=== PATIENT | female | born 1960 | race Caucasian/White ===

== ENCOUNTER → 2016-12-27 | Outpatient (CLI) | payer BC ==
[~2016-12-27] MED LIST: ALBU1AER9 INH; ASPI81TA21 PO; ATOR80TA PO; CLX20 PO; LEVO1TAB33 PO; METF500T PO
== END | disposition home or self-care (01) ==
LOC: C.LABPVFM 12:50
PROVIDERS: ATTEND Nurse Practitioner Family
DX: R39.9 Unspecified symptoms and signs involving the genitourinary system (principal)

== ENCOUNTER → 2017-01-16 | Outpatient (CLI) | payer BC ==
--- NOTE | 2017-01-16 16:28 | MAMMOGRAPHY REPORT ---
BILATERAL DIGITAL SCREENING MAMMOGRAM TOMOSYNTHESIS WITH CAD: 01/16/2017 CLINICAL HISTORY: Routine screening. Patient has no complaints. TECHNIQUE: Breast tomosynthesis in addition to standard 2D mammography was performed. Current study was also evaluated with a Computer Aided Detection (CAD) system. COMPARISON: Comparison is made to exams dated: 12/23/2015 mammogram, 12/20/2014 mammogram, 10/23/2013 elias mogram, 10/22/2012 mammogram, 10/22/2011 mammogram, and 10/16/2010 mammogram - [facility] er. BREAST COMPOSITION: There are scattered areas of fibroglandular density in both breasts. FINDINGS: There are a few benign rim calcifications in the breasts. No suspicious mass, architectur al distortion or cluster of suspicious microcalcifications is seen. IMPRESSION: ACR BI-RADS CATEGORY 1: NEGATIVE There is no mammographic evidence of malignancy. A 1 year screening mammogram is recommended. The p atient will receive written notification of the results. Approximately 10% of breast cancers are not detected with mammography. A negative mammographic repor t should not delay biopsy if a clinically suggestive mass is present. Ginger Martinez M.D. ay/:01/16/2017 15:45:29 [employer]ener And Blender: Shelley SANDERS(R)(Woo), [facility] letter sent: Normal 1/2 BI-RADS Code: ACR BI-RADS Category 1: Negative
== END | disposition home or self-care (01) ==
LOC: C.MAMM 13:45
PROVIDERS: ATTEND Nurse Practitioner
DX: Z12.31 Encounter for screening mammogram for malignant neoplasm of breast (principal)

== ENCOUNTER → 2017-02-04 | Outpatient (CLI) | payer BC ==
[2017-02-04 13:18] LABS: BLOOD UREA NITROGEN 9 mg/dl (7-18); BUN/CREATININE RATIO 13.6 (10-20); CALCIUM 8.1 mg/dl (8.5-10.1); CARBON DIOXIDE 24 mmol/L (21-32); CHLORIDE 110 mmol/L (98-107); CREATININE 0.66 mg/dl (0.60-1.20); GLUCOSE 256 mg/dl (70-99); SODIUM 143 mmol/L (136-145)
[2017-02-04 13:21] LABS: CHOLESTEROL 107 mg/dl (0-200); CHOLESTEROL/HDL RATIO 3.3; HDL CHOLESTEROL 32 mg/dl; LDL CHOLESTEROL CALCULATED 34 mg/dl; TRIGLYCERIDES 207 mg/dl (0-150); VERY LOW DENSITY LIPOPROT CALC 41 mg/dl
[2017-02-04 13:28] LABS: ESTIMATED AVERAGE GLUCOSE 295 mg/dl; HA1C FLAG Normal (Normal)
== END | disposition home or self-care (01) ==
LOC: C.LABPVFM 07:48
PROVIDERS: ATTEND Nurse Practitioner
DX: I10 Essential (primary) hypertension (principal); E11.9 Type 2 diabetes mellitus without complications; E78.00 Pure hypercholesterolemia, unspecified

== ENCOUNTER → 2017-07-16 | Outpatient (CLI) | payer BC ==
[~2017-07-16] VITALS: Ht 160 cm; Wt 91.9 kg
[2017-07-16 15:02] VITALS: BP 133/85; PULSE 80; Ht 160 cm; Wt 91.9 kg
== END | disposition home or self-care (01) ==
LOC: C.NEUR 14:45
PROVIDERS: ATTEND Internal Medicine Pulmonary Disease
DX: G47.30 Sleep apnea, unspecified (principal); I66.9 Occlusion and stenosis of unspecified cerebral artery; J44.9 Chronic obstructive pulmonary disease, unspecified

== ENCOUNTER → 2018-01-02 | Outpatient (CLI) | payer BC, OTHER ==
[~2018-01-02] MED LIST changes: +ASPI-319 PO; -ASPI81TA21 PO
== END | disposition home or self-care (01) ==
LOC: C.LABPVFM 08:31
PROVIDERS: ATTEND Family Medicine
DX: N39.0 Urinary tract infection, site not specified (principal)

== ENCOUNTER → 2018-01-08 | Outpatient (CLI) | payer OTHER ==
[2018-01-08 13:23] LABS: HEMOGLOBIN A1C 11.8 % (4.5-5.6)
[2018-01-08 14:07] LABS: BLOOD UREA NITROGEN 14 mg/dl (7-18); CALCIUM 8.6 mg/dl (8.5-10.1); CARBON DIOXIDE 26 mmol/L (21-32); CHOLESTEROL 111 mg/dl (0-200); CREATININE 0.74 mg/dl (0.60-1.20); GLUCOSE 296 mg/dl (70-99); LDL CHOLESTEROL CALCULATED 28 mg/dl; POTASSIUM 3.9 mmol/L (3.5-5.1); SODIUM 138 mmol/L (136-145)
== END | disposition home or self-care (01) ==
LOC: C.LABPVFM 07:43
PROVIDERS: ATTEND Nurse Practitioner
DX: I10 Essential (primary) hypertension (principal); E11.9 Type 2 diabetes mellitus without complications; E78.00 Pure hypercholesterolemia, unspecified

== ENCOUNTER 2018-12-05 14:26 | Inpatient (IN) ==
[2018-12-05] MEDS ORDERED: OPTIRAY 320 125ml IV PRN (14:31)
--- NOTE | 2018-12-05 14:42 | CT Scan Report ---
CT SCAN OF THE BRAIN WITHOUT IV CONTRAST CLINICAL HISTORY: Strokelike symptoms. COMPARISON STUDY: CT of the brain dated 01/03/2011. TECHNIQUE: Unenhanced axial CT scan of the brain is performed from the vertex to the skull base. A d ose lowering technique was utilized adhering to the principles of ALARA. FINDINGS: Brain parenchyma: The brain parenchyma is normal in appearance. There is no hemorrhage, mass effect, or evidence of acute territorial ischemia by CT criteria. Delong-white matter differentiation is preser yenni. No extra-axial fluid collection is seen. Ventricles, sulci, cisterns: Normal in configuration. Intracranial vasculature: There is atherosclerotic calcification of the cavernous carotid and vertebr al arteries. Calvarium: Unremarkable. Sinuses and mastoids: The visualized paranasal sinuses are clear. The mastoid air cells are well pneu matized. Orbits: The bony orbits are grossly intact. IMPRESSION: There is no hemorrhage, mass effect, or evidence of acute territorial ischemia by CT samreen gill. Electronically signed by: Munir Quiroga M.D. 12/05/2018 2:41 PM
[2018-12-05] MEDS ORDERED: PRIMARY PLUMSET 1 EA IV ONE (14:45)
[2018-12-05] MEDS ORDERED: ALTEPLASE RECOMBINANT IV SCH (14:45)
[2018-12-05] MEDS ORDERED: ALTEPLASE, RECOMBINANT 81 MG in EMPTY BAG 0 ML IV SCH (14:45)
--- NOTE | 2018-12-05 14:49 | CT Scan Report ---
CT angio head w con CLINICAL HISTORY: Stroke TECHNIQUE: CT angiography of the head was performed in a dynamic helical fashion during intravenous a dministration of 119 cc of Optiray 320. MIP imaging was performed. A dose lowering technique was util ized adhering to the principles of ALARA. CT DOSE: 1147.93 mGy.cm COMPARISON STUDY: No previous studies for comparison. FINDINGS: There are no lesion suspicious for aneurysm. There are no major intracranial branch occlusi ons. The dural venous sinuses appear patent. There is a origin of the left posterior cerebral a rtery IMPRESSION: Unremarkable CT angiography of the brain. Electronically signed by: Jefferson Yates M.D. 12/05/2018 2:48 PM
--- NOTE | 2018-12-05 14:51 | CT Scan Report ---
CT ANGIOGRAPHY OF THE NECK WITH CONTRAST CLINICAL HISTORY: Slurred speech. Evaluate for cerebrovascular accident. COMPARISON STUDY: MRA of the neck January 04, 2011. Technique: CT angiography of the carotid and vertebral arteries was obtained using [email or web address] 320 IV and 3D reconstruction on an independent workstation. NASCET criteria was utilized. Automated exposure c ontrol was utilized for the study. A dose lowering technique was utilized adhering to the principles of ALARA. Findings: There is moderate atherosclerotic plaque within the proximal bilateral internal carotid art eries without stenosis. The bilateral vertebral arteries are patent. There is no dissection or aneury sm within the major vessels of the neck. Lung apices are clear. There is no cervical lymphadenopathy. There is no cervical spine fracture. IMPRESSION: 1. Moderate atherosclerotic plaque within the proximal bilateral internal carotid arteries without st enosis. 2. No dissection. Electronically signed by: Shubham Vasques M.D. 12/05/2018 2:50 PM
[2018-12-05 15:00] LABS: Basophils # (auto) 0.02 K/uL (0-0.2); Basophils % (auto) 0.2 %; Eosinophils # (auto) 0.17 K/uL (0-0.5); Eosinophils % (auto) 1.7 %; Hematocrit (blood only) 44.2 % (37-47); Hemoglobin 14.8 g/dL (12.0-16.0); Immature Granulocytes # (auto) 0.03 K/uL (0.00-0.02); Immature Granulocytes % (auto) 0.3 %; Mean Corpuscular Hgb Conc 33.5 g/dL (32-36); Mean Corpuscular Volume 102.1 fL (80-100); Mean Platelet Volume 10.5 fL (7.4-10.4); Neutrophils # (auto) 6.86 K/uL (1.4-6.5); Neutrophils % (auto) 68.8 %; Platelet Count 170 K/uL (130-400); RDW Coefficient of Variation 13.8 % (11.5-14.5); RDW Standard Deviation 51.9 fL (36.4-46.3); Red Blood Count 4.33 M/uL (4.2-5.4); White Blood Count 9.98 K/uL (4.8-10.8)
[2018-12-05 15:10] LABS: Partial Thromboplastin Time 27.2 Seconds (21.0-31.0); Prothrombin Time 10.3 Seconds (9.0-12.0)
[2018-12-05 15:16] LABS: Alanine Aminotransferase 27 U/L (12-78); Albumin Level 3.6 gm/dl (3.4-5.0); Aspartate Aminotransferase 13 U/L (15-37); BUN Creatinine Ratio 17.5 (10-20); Blood Urea Nitrogen 12 mg/dl (7-18); Calcium 8.5 mg/dl (8.5-10.1); Carbon Dioxide 26 mmol/L (21-32); Chloride 107 mmol/L (98-107); Est GFR (African American) 109.1; Est GFR (Non-African American) 94.2; Glucose 112 mg/dl (70-99); Magnesium 1.9 mg/dl (1.8-2.4); Potassium 4.3 mmol/L (3.5-5.1); Sodium 138 mmol/L (136-145)
--- NOTE | 2018-12-05 15:19 | Emergency Department Note ---
Entered by Glenn Kasper acting as a scribe for Hung Pena DO History of Present Illness General Chief complaint: Stroke/CVA Symptoms Source: patient History of Present Illness Provider complaint: Stroke Symptoms Onset (ago): minute(s) 45 Location: head Severity: similar to prior episodes Pain Consistency: + other (Episodic) Relieved By: + none Exacerbated By: + none Associated symptoms: + weakness and + other (Slurred speech, facial droop) The patient is a 58 year old female who presents to the Emergency Room via EMS after having an episode of left sided facial droop and slurred speech about 45 minutes at 1350. The patient was at her PCP's office when the symptoms started. Per EMS she is complaining of left arm pain starting yesterday and progressively getting worse. Per her son, while they were at the PCP's office, the patient started asking him if her face looked like it was drooping and also complained of left sided upper and lower extremity weakness. Currently, she states she is feeling better than when her symptoms inititally began. The patient does have a history of a stroke that occurred in 2010. From this stroke she does not have any deficits at baseline. She does have a history of hypertension as well and does smoke tobacco. Home Medications Home Medications Medication Instructions Recorded Confirmed Type albuterol sulfate [ProAir HFA] 2 puff INHALATION Q4 PRN 12/05/18 12/05/18 History aspirin [Aspir-81] 81 mg PO DAILY 12/05/18 12/05/18 History atorvastatin 80 mg PO HS 12/05/18 12/05/18 History buspirone 5 mg PO BID 12/05/18 12/05/18 History escitalopram oxalate 10 mg PO DAILY 12/05/18 12/05/18 History fluticasone propion-salmeterol 1 puff INHALATION BID PRN 12/05/18 12/05/18 History [Advair Diskus] insulin glargine [Basaglar KwikPen 30 unit SUBCUT 12/05/18 12/05/18 History U-100 Insulin] lisinopril 10 mg PO DAILY 12/05/18 12/05/18 History metformin 1,000 mg PO BID 12/05/18 12/05/18 History naproxen 500 mg PO BID 12/05/18 12/05/18 History omeprazole 20 mg PO DAILY 12/05/18 12/05/18 History potassium 99 mg PO DAILY 12/05/18 12/05/18 History Allergies Allergy/AdvReac Type Severity Reaction Status Date / Time No Known Allergies Allergy Unknown Verified 12/05/18 15:33 Past Med/Surg History Medical History Diabetes Hypertension Stroke Social History Preferred Language: Belarusian Communication Ability: Effective Solutions Engineer Required: No Beliefs That Will Affect Care: None marital status: Current Living Situation: Spouse Feels Safe at Home: Yes Smoking Status: Current every day smoker Tobacco Type: cigarettes Tobacco Cessation Education Requested by Patient: No Hx Alcohol Use: No Review of Systems See HPI for pertinent positives & negatives. and A total of 10 systems reviewed and were otherwise negative Physical Exam Vital Signs Vital Signs - 24 hr 12/05/18 14:38 12/05/18 15:00 12/05/18 15:15 Temperature 37 C Temperature Source Oral Sepsis Recent Fever Within 48 Hours No Sepsis New/Unexplained Change in Mental Status Yes Sepsis Action Taken by Nursing No Action Required Pulse Rate 89 90 78 Pulse Rate [Apical] Pulse Rate from SpO2 Sensor 90 71 Pulse Rhythm Regular Respiratory Rate 18 Respiratory Effort / Characteristics Respiratory Depth Respiratory Pattern Blood Pressure 163/102 H 167/103 H 146/109 H Blood Pressure [Right Arm] Blood Pressure Mean 122 124 121 Blood Pressure Mean [Right Arm] Blood Pressure Position [Right Arm] Pulse Oximetry 97 93 95 Oxygen Delivery Method Room Air Room Air 12/05/18 15:30 12/05/18 15:45 12/05/18 16:00 Temperature Temperature Source Sepsis Recent Fever Within 48 Hours Sepsis New/Unexplained Change in Mental Status Sepsis Action Taken by Nursing Pulse Rate 70 63 68 Pulse Rate [Apical] Pulse Rate from SpO2 Sensor 70 67 78 Pulse Rhythm Respiratory Rate Respiratory Effort / Characteristics Respiratory Depth Respiratory Pattern Blood Pressure 136/85 157/94 H Blood Pressure [Right Arm] Blood Pressure Mean 102 115 Blood Pressure Mean [Right Arm] Blood Pressure Position [Right Arm] Pulse Oximetry 94 94 92 Oxygen Delivery Method Room Air Room Air 12/05/18 16:01 12/05/18 16:02 12/05/18 16:15 Temperature Temperature Source Sepsis Recent Fever Within 48 Hours Sepsis New/Unexplained Change in Mental Status Sepsis Action Taken by Nursing Pulse Rate 79 69 74 Pulse Rate [Apical] Pulse Rate from SpO2 Sensor 73 65 78 Pulse Rhythm Respiratory Rate 18 Respiratory Effort / Characteristics Respiratory Depth Respiratory Pattern Blood Pressure 157/74 H Blood Pressure [Right Arm] Blood Pressure Mean 101 Blood Pressure Mean [Right Arm] Blood Pressure Position [Right Arm] Pulse Oximetry 94 95 94 Oxygen Delivery Method 12/05/18 16:16 12/05/18 16:30 12/05/18 16:45 Temperature Temperature Source Sepsis Recent Fever Within 48 Hours Sepsis New/Unexplained Change in Mental Status Sepsis Action Taken by Nursing Pulse Rate 62 71 61 Pulse Rate [Apical] Pulse Rate from SpO2 Sensor 62 72 65 Pulse Rhythm Respiratory Rate Respiratory Effort / Characteristics Respiratory Depth Respiratory Pattern Blood Pressure 142/92 H 153/94 H 131/95 Blood Pressure [Right Arm] Blood Pressure Mean 108 113 107 Blood Pressure Mean [Right Arm] Blood Pressure Position [Right Arm] Pulse Oximetry 95 93 94 Oxygen Delivery Method Room Air Room Air 12/05/18 17:28 12/05/18 20:30 12/05/18 23:41 Temperature 36.8 C 37.2 C 36.7 C Temperature Source Oral Oral Oral Sepsis Recent Fever Within 48 Hours Sepsis New/Unexplained Change in Mental Status Sepsis Action Taken by Nursing Pulse Rate Pulse Rate [Apical] 64 68 58 L Pulse Rate from SpO2 Sensor Pulse Rhythm Respiratory Rate 20 21 16 Respiratory Effort / Characteristics Non-Labored Spontaneous Respiratory Depth Normal Respiratory Pattern Regular Blood Pressure Blood Pressure [Right Arm] 158/95 H 129/84 121/67 Blood Pressure Mean Blood Pressure Mean [Right Arm] 116 99 85 Blood Pressure Position [Right Arm] Sitting Lying Pulse Oximetry 96 94 93 Oxygen Delivery Method Room Air Room Air Room Air 12/06/18 02:35 12/06/18 06:59 12/06/18 07:03 Temperature 36.7 C 36.8 C Temperature Source Oral Oral Sepsis Recent Fever Within 48 Hours Sepsis New/Unexplained Change in Mental Status Sepsis Action Taken by Nursing Pulse Rate Pulse Rate [Apical] 51 L 66 Pulse Rate from SpO2 Sensor Pulse Rhythm Respiratory Rate 18 18 Respiratory Effort / Characteristics Respiratory Depth Respiratory Pattern Blood Pressure Blood Pressure [Right Arm] 124/68 129/84 Blood Pressure Mean Blood Pressure Mean [Right Arm] 86 99 Blood Pressure Position [Right Arm] Pulse Oximetry 93 93 Oxygen Delivery Method Room Air Room Air 12/06/18 11:27 12/06/18 11:58 Temperature 36.8 C Temperature Source Oral Sepsis Recent Fever Within 48 Hours Sepsis New/Unexplained Change in Mental Status Sepsis Action Taken by Nursing Pulse Rate Pulse Rate [Apical] 58 L Pulse Rate from SpO2 Sensor Pulse Rhythm Respiratory Rate 20 Respiratory Effort / Characteristics Respiratory Depth Respiratory Pattern Blood Pressure Blood Pressure [Right Arm] 156/84 H Blood Pressure Mean Blood Pressure Mean [Right Arm] 108 Blood Pressure Position [Right Arm] Pulse Oximetry 93 Oxygen Delivery Method Room Air GENERAL: Patient is awake, alert, and somewhat somnolent.Patient is resting comfortably and showing no signs of anxiety EYES: The conjunctivae are clear. The pupils are round and reactive. EARS, NOSE, MOUTH AND THROAT: The nose is without any evidence of any deformity. Mucous membranes are moist.Tongue is midline NECK: The neck is nontender and supple. RESPIRATORY: Normal respiratory effort is noted. There is no evidence of wheezing rhonchi or rales to auscultation. CARDIOVASCULAR: Regular rate and rhythm noted. There no murmurs rubs or gallops normal S1 normal S2 GASTROINTESTINAL: The abdomen is soft. Bowel sounds are present in all quadrants. Abdomen is nontender. MUSCULOSKELETAL/EXTREMITIES: There is no evidence of gross deformity. Full range of motion is noted in the hips and shoulders. Significant tenderness over the lateral elbow. Good ROM of lateral elbow but it is painful. SKIN: There is no obvious evidence of any rash. There are no petechiae, pallor or cyanosis noted. Trace bilateral pedal edema. NEUROLOGIC: Patient is oriented x3 with pressured speech. Left facial droop involving left corner of mouth with forehead sparing. Home Health Care Case Manager strength was diminished in left hand when compared to right. Was able to hold each leg off of bed for greater than 5 seconds with slight weakness in the left leg when compared to the right. Course 1427: Upon arrival the patient was brought straight to CT scan. Then the patient was evaluated in room B01, and a complete history and physical examination were performed. 1430: I spoke to Dr. Zay Herzog [facility] about the patient's case and she agreed to evaluated her over video chat. 1455: I reevaluated the patient and she has greatly improved. 1509: After evaluation, Dr. Collazo decided that due to the patient's resolved symptoms I should not give TPA. 1515: I spoke to Dr. Babin - [facility] Hospitalist about the patient's case and he is going to accept her for further evaluation. Consultations Consultation #1: I spoke to Dr. Zay Calloway Neurology about the patient's case and she agreed to evaluated her over video chat. Time: 14:30 Consultation #2: I spoke to Dr. Babin - [facility] Hospitalist about the patient's case and he is going to accept her for further evaluation. Time: 15:15 Administered Medications Aspirin (Ecotrin Ectab) [facility] Stop: 01/05/19 08:59 Last Admin: 12/06/18 07:59 Dose: 81 mg Documented by: [id number] Atorvastatin Calcium (Lipitor) 80 mg PO HS [facility] Stop: 01/04/19 20:59 Last Admin: 12/05/18 20:07 Dose: 80 mg Documented by: [id number] Clopidogrel Bisulfate (Plavix) 75 mg PO QAM [facility] Stop: 01/05/19 08:59 Last Admin: 12/06/18 07:59 Dose: 75 mg Documented by: [id number] Colchicine (Colcrys) 0.6 mg PO BID [facility] Stop: 01/04/19 20:59 Last Admin: 12/06/18 07:59 Dose: 0.6 mg Documented by: [id number] Admin: 12/05/18 20:07 Dose: 0.6 mg Documented by: [id number] Enoxaparin Sodium (Lovenox) 40 mg SQ Q24H [facility] Stop: 01/04/19 17:59 Last Admin: 12/05/18 20:07 Dose: 40 mg Documented by: [id number] Gadobutrol (Gadavist 65ml) 9.5 ml IV ONCE PRN PRN Reason: Interaction Checking Stop: 12/09/18 20:50 Last Admin: 12/05/18 20:51 Dose: 9.5 ml Documented by: [id number] Insulin Aspart (Novolog Flexpen) 0 units SC ACHS [facility] Stop: 01/05/19 07:29 Last Admin: 12/06/18 11:53 Dose: 9 units Documented by: [id number] Cosigned by: [id number] Admin: 12/06/18 08:01 Dose: 3 units Documented by: [id number] Cosigned by: [id number] Ketorolac Tromethamine (Toradol) 15 mg IV Q6H PRN PRN Reason: Pain Stop: 12/10/18 17:22 Last Admin: 12/06/18 07:55 Dose: 15 mg Documented by: [id number] Admin: 12/06/18 00:29 Dose: 15 mg Documented by: [id number] Admin: 12/05/18 18:15 Dose: 15 mg Documented by: [id number] Discontinued Medications Colchicine (Colcrys) 0.6 mg PO NOW ONE Stop: 12/05/18 17:24 Last Admin: 12/05/18 18:15 Dose: 0.6 mg Documented by: [id number] Alteplase, Recombinant 81 mg/ (EMPTY BAG) 81 mls @ 81 mls/hr IV TODAY@1445 [facility]; Protocol Stop: 12/05/18 15:44 Last Admin: 12/05/18 15:50 Dose: Not Given Documented by: [id number] Alteplase, Recombinant (Activase) 9 mls @ 9 mls/min IV TODAY@1445 [facility] Stop: 12/05/18 14:46 Last Admin: 12/05/18 15:50 Dose: Not Given Documented by: [id number] N/A (Primary [place], Pe Lined Tubing ([id number])) mls @ 0 mls/hr IV ONE ONE Stop: 12/05/18 14:46 Last Admin: 12/05/18 15:50 Dose: Not Given Documented by: [id number] Sodium Chloride (Nss 1000ml) 1,000 mls @ 75 mls/hr IV .[id number] [facility] Stop: 01/04/19 17:22 Last Infusion: 12/06/18 10:18 Dose: 0 mls/hr Documented by: [id number] Admin: 12/06/18 08:04 Dose: 75 mls/hr Documented by: [id number] Infusion: 12/06/18 07:43 Dose: 75 mls/hr Documented by: [id number] Admin: 12/05/18 18:23 Dose: 75 mls/hr Documented by: [id number] Insulin Glargine (Lantus Solostar Pen) 16 units SC TODAY@2200 [facility] Stop: 12/05/18 22:01 Last Admin: 12/05/18 22:58 Dose: 16 units Documented by: [id number] Cosigned by: [id number] Ioversol (Optiray 320 125ml) 119 ml IV ONCE PRN PRN Reason: Interaction Checking Stop: 12/09/18 14:30 Last Admin: 12/05/18 14:31 Dose: 119 ml Documented by: [id number] Prednisone (Prednisone) 40 mg PO NOW STA Stop: 12/06/18 10:10 Last Admin: 12/06/18 10:52 Dose: 40 mg Documented by: [id number] Medical Decision Making Differential Diagnosis Differential Diagnosis includes but is not limited to dehydration, stroke, a nemia, hypoglycemia, hyponatremia, hypernatremia, urinary tract infection, pneumonia, bronchitis, sepsis, gastroenteritis, additional abdominal pathology, metabolic abnormalities and infections. Medical Records Attestation: I reviewed the patient's medical records. Home Medications Current Medication List: was personally reviewed by me Laboratory Data Attestation: I reviewed the patient's lab results. Result diagrams: 12/06/18 06:08 12/06/18 06:08 Lab Results 12/05/18 12/05/18 12/05/18 Range/Units 14:40 14:49 14:49 WBC 9.98 (4.8-10.8) K/uL RBC 4.33 (4.2-5.4) M/uL Hgb 14.8 (12.0-16.0) g/dL Hct 44.2 (37-47) % MCV 102.1 H (80-100) fL MCH 34.2 H (25-34) pg MCHC 33.5 (32-36) g/dL RDW Std Deviation 51.9 H (36.4-46.3) fL RDW Coeff of Piero 13.8 (11.5-14.5) % Plt Count 170 (130-400) K/uL MPV 10.5 H (7.4-10.4) fL Immature Gran % (Auto) 0.3 % Neut % (Auto) 68.8 % Lymph % (Auto) 24.0 % [place] % (Auto) 5.0 % Eos % (Auto) 1.7 % Baso % (Auto) 0.2 % Immature Gran # (Auto) 0.03 H (0.00-0.02) K/uL Neut # (Auto) 6.86 H (1.4-6.5) K/uL Lymph # (Auto) 2.40 (1.2-3.4) K/uL [place] # (Auto) 0.50 (0.11-0.59) K/uL Eos # (Auto) 0.17 (0-0.5) K/uL Baso # (Auto) 0.02 (0-0.2) K/uL PT 10.3 (9.0-12.0) Seconds INR 1.0 (0.9-1.1) APTT 27.2 (21.0-31.0) Seconds PTT Ratio 1.0 Sodium (136-145) mmol/L Potassium (3.5-5.1) mmol/L Chloride (98-107) mmol/L Carbon Dioxide (21-32) mmol/L Anion Gap (3-11) BUN (7-18) mg/dl Creatinine (0.6-1.2) mg/dl Est Cr Clr Drug Dosing Est GFR ( Amer) Est GFR (Non-Af Amer) BUN/Creatinine Ratio (10-20) Glucose (70-99) mg/dl POC Glucose 116 H (70-99) Estimat Average Glucose mg/dl Hemoglobin A1c (4.5-5.6) % Uric Acid (2.6-7.2) mg/dl Calcium (8.5-10.1) mg/dl Magnesium (1.8-2.4) mg/dl Total Bilirubin (0.2-1) mg/dl AST (15-37) U/L ALT (12-78) U/L Alkaline Phosphatase (45-117) U/L Troponin I (0-0.045) ng/ml Total Protein (6.4-8.2) gm/dl Albumin (3.4-5.0) gm/dl Globulin (2.5-4.0) gm/dl Albumin/Globulin Ratio (0.9-2) Triglycerides (0-150) mg/dl Cholesterol (0-200) mg/dl LDL Cholesterol, Calc mg/dl VLDL Cholesterol, Calc mg/dl HDL Cholesterol mg/dl Cholesterol/HDL Ratio Blood Type Antibody Screen 12/05/18 12/05/18 12/05/18 Range/Units 14:49 14:49 14:49 WBC (4.8-10.8) K/uL RBC (4.2-5.4) M/uL Hgb (12.0-16.0) g/dL Hct (37-47) % MCV (80-100) fL MCH (25-34) pg MCHC (32-36) g/dL RDW Std Deviation (36.4-46.3) fL RDW Coeff of Piero (11.5-14.5) % Plt Count (130-400) K/uL MPV (7.4-10.4) fL Immature Gran % (Auto) % Neut % (Auto) % Lymph % (Auto) % [place] % (Auto) % Eos % (Auto) % Baso % (Auto) % Immature Gran # (Auto) (0.00-0.02) K/uL Neut # (Auto) (1.4-6.5) K/uL Lymph # (Auto) (1.2-3.4) K/uL [place] # (Auto) (0.11-0.59) K/uL Eos # (Auto) (0-0.5) K/uL Baso # (Auto) (0-0.2) K/uL PT (9.0-12.0) Seconds INR (0.9-1.1) APTT (21.0-31.0) Seconds PTT Ratio Sodium 138 (136-145) mmol/L Potassium 4.3 (3.5-5.1) mmol/L Chloride 107 (98-107) mmol/L Carbon Dioxide 26 (21-32) mmol/L Anion Gap 5.0 (3-11) BUN 12 (7-18) mg/dl Creatinine 0.70 (0.6-1.2) mg/dl Est Cr Clr Drug Dosing Not Reportable Est GFR ( Amer) 109.1 Est GFR (Non-Af Amer) 94.2 BUN/Creatinine Ratio 17.5 (10-20) Glucose 112 H (70-99) mg/dl POC Glucose (70-99) Estimat Average Glucose 209 mg/dl Hemoglobin A1c 8.9 H (4.5-5.6) % Uric Acid (2.6-7.2) mg/dl Calcium 8.5 (8.5-10.1) mg/dl Magnesium 1.9 (1.8-2.4) mg/dl Total Bilirubin 0.4 (0.2-1) mg/dl AST 13 L (15-37) U/L ALT 27 (12-78) U/L Alkaline Phosphatase 96 (45-117) U/L Troponin I < 0.015 (0-0.045) ng/ml Total Protein 6.8 (6.4-8.2) gm/dl Albumin 3.6 (3.4-5.0) gm/dl Globulin 3.2 (2.5-4.0) gm/dl Albumin/Globulin Ratio 1.1 (0.9-2) Triglycerides (0-150) mg/dl Cholesterol (0-200) mg/dl LDL Cholesterol, Calc mg/dl VLDL Cholesterol, Calc mg/dl HDL Cholesterol mg/dl Cholesterol/HDL Ratio Blood Type O Positive Antibody Screen NEGATIVE 12/05/18 12/05/18 12/06/18 Range/Units 17:58 21:20 06:08 WBC 8.07 (4.8-10.8) K/uL RBC 4.07 L (4.2-5.4) M/uL Hgb 13.7 (12.0-16.0) g/dL Hct 41.5 (37-47) % MCV 102.0 H (80-100) fL MCH 33.7 (25-34) pg MCHC 33.0 (32-36) g/dL RDW Std Deviation 51.0 H (36.4-46.3) fL RDW Coeff of Piero 13.6 (11.5-14.5) % Plt Count 156 (130-400) K/uL MPV 10.6 H (7.4-10.4) fL Immature Gran % (Auto) 0.1 % Neut % (Auto) 61.2 % Lymph % (Auto) 30.6 % [place] % (Auto) 5.0 % Eos % (Auto) 2.9 % Baso % (Auto) 0.2 % Immature Gran # (Auto) 0.01 (0.00-0.02) K/uL Neut # (Auto) 4.94 (1.4-6.5) K/uL Lymph # (Auto) 2.47 (1.2-3.4) K/uL [place] # (Auto) 0.40 (0.11-0.59) K/uL Eos # (Auto) 0.23 (0-0.5) K/uL Baso # (Auto) 0.02 (0-0.2) K/uL PT (9.0-12.0) Seconds INR (0.9-1.1) APTT (21.0-31.0) Seconds PTT Ratio Sodium (136-145) mmol/L Potassium (3.5-5.1) mmol/L Chloride (98-107) mmol/L Carbon Dioxide (21-32) mmol/L Anion Gap (3-11) BUN (7-18) mg/dl Creatinine (0.6-1.2) mg/dl Est Cr Clr Drug Dosing Est GFR ( Amer) Est GFR (Non-Af Amer) BUN/Creatinine Ratio (10-20) Glucose (70-99) mg/dl POC Glucose 100 H 127 H (70-99) Estimat Average Glucose mg/dl Hemoglobin A1c (4.5-5.6) % Uric Acid (2.6-7.2) mg/dl Calcium (8.5-10.1) mg/dl Magnesium (1.8-2.4) mg/dl Total Bilirubin (0.2-1) mg/dl AST (15-37) U/L ALT (12-78) U/L Alkaline Phosphatase (45-117) U/L Troponin I (0-0.045) ng/ml Total Protein (6.4-8.2) gm/dl Albumin (3.4-5.0) gm/dl Globulin (2.5-4.0) gm/dl Albumin/Globulin Ratio (0.9-2) Triglycerides (0-150) mg/dl Cholesterol (0-200) mg/dl LDL Cholesterol, Calc mg/dl VLDL Cholesterol, Calc mg/dl HDL Cholesterol mg/dl Cholesterol/HDL Ratio Blood Type Antibody Screen 12/06/18 12/06/18 12/06/18 Range/Units 06:08 07:33 11:23 WBC (4.8-10.8) K/uL RBC (4.2-5.4) M/uL Hgb (12.0-16.0) g/dL Hct (37-47) % MCV (80-100) fL MCH (25-34) pg MCHC (32-36) g/dL RDW Std Deviation (36.4-46.3) fL RDW Coeff of Piero (11.5-14.5) % Plt Count (130-400) K/uL MPV (7.4-10.4) fL Immature Gran % (Auto) % Neut % (Auto) % Lymph % (Auto) % [place] % (Auto) % Eos % (Auto) % Baso % (Auto) % Immature Gran # (Auto) (0.00-0.02) K/uL Neut # (Auto) (1.4-6.5) K/uL Lymph # (Auto) (1.2-3.4) K/uL [place] # (Auto) (0.11-0.59) K/uL Eos # (Auto) (0-0.5) K/uL Baso # (Auto) (0-0.2) K/uL PT (9.0-12.0) Seconds INR (0.9-1.1) APTT (21.0-31.0) Seconds PTT Ratio Sodium 142 (136-145) mmol/L Potassium 3.9 (3.5-5.1) mmol/L Chloride 110 H (98-107) mmol/L Carbon Dioxide 26 (21-32) mmol/L Anion Gap 6.0 (3-11) BUN 14 (7-18) mg/dl Creatinine 0.52 L (0.6-1.2) mg/dl Est Cr Clr Drug Dosing 127.6 Est GFR ( Amer) 120.4 Est GFR (Non-Af Amer) 103.9 BUN/Creatinine Ratio 26.4 H (10-20) Glucose 111 H (70-99) mg/dl POC Glucose 119 H 210 H (70-99) Estimat Average Glucose mg/dl Hemoglobin A1c (4.5-5.6) % Uric Acid 3.7 (2.6-7.2) mg/dl Calcium 8.7 (8.5-10.1) mg/dl Magnesium (1.8-2.4) mg/dl Total Bilirubin (0.2-1) mg/dl AST (15-37) U/L ALT (12-78) U/L Alkaline Phosphatase (45-117) U/L Troponin I (0-0.045) ng/ml Total Protein (6.4-8.2) gm/dl Albumin (3.4-5.0) gm/dl Globulin (2.5-4.0) gm/dl Albumin/Globulin Ratio (0.9-2) Triglycerides 191 H (0-150) mg/dl Cholesterol 101 (0-200) mg/dl LDL Cholesterol, Calc 34 mg/dl VLDL Cholesterol, Calc 38 mg/dl HDL Cholesterol 29 mg/dl Cholesterol/HDL Ratio 4 Blood Type Antibody Screen Imaging Data Radiologist's Impression: Radiology results as stated below per my review and the radiologist's interpretation: XR chest 1V portable CLINICAL HISTORY: weakness dyspnea COMPARISON STUDY: None FINDINGS: Mild stable cardiomegaly. Prominent parenchymal markings at the right and to lesser extent left base. This is unchanged compared to the prior study. Prominent pulmonary vasculature. IMPRESSION: Probable developing components of congestive heart failure. The above report was generated using voice recognition software. It may contain grammatical, syntax or spelling errors. Electronically signed by: Daniel York M.D. 12/05/2018 3:20 PM XR elbow LT min 3V routine CLINICAL HISTORY: pain pain COMPARISON: None. DISCUSSION: The bones and joint spaces appear intact. There is no evidence of fracture, dislocation or bony disease. There is no evidence for soft tissue swelling. Findings suggestive of an old avulsion from the medial humeral condyle. No significant joint effusion IMPRESSION: No acute process. The above report was generated using voice recognition software. It may contain grammatical, syntax or spelling errors. Electronically signed by: Daniel York M.D. 12/05/2018 3:[address] SCAN OF THE BRAIN WITHOUT IV CONTRAST CLINICAL HISTORY: Strokelike symptoms. COMPARISON STUDY: CT of the brain dated 01/03/2011. TECHNIQUE: Unenhanced axial CT scan of the brain is performed from the vertex to the skull base. A dose lowering technique was utilized adhering to the principles of ALARA. FINDINGS: Brain parenchyma: The brain parenchyma is normal in appearance. There is no hemorrhage, mass effect, or evidence of acute territorial ischemia by CT cr iteria. Delong-white matter differentiation is preserved. No extra-axial fluid collection is seen. Ventricles, sulci, cisterns: Normal in configuration. Intracranial vasculature: There is atherosclerotic calcification of the cavernous carotid and vertebral arteries. Calvarium: Unremarkable. Sinuses and mastoids: The visualized paranasal sinuses are clear. The mastoid air cells are well pneumatized. Orbits: The bony orbits are grossly intact. IMPRESSION: There is no hemorrhage, mass effect, or evidence of acute territorial ischemia by CT criteria. Electronically signed by: Munir Quiroga M.D. 12/05/2018 2:[address] angio head w con CLINICAL HISTORY: Stroke TECHNIQUE: CT angiography of the head was performed in a dynamic helical fashion during intravenous administration of 119 cc of Optiray 320. MIP imaging was performed. A dose lowering technique was utilized adhering to the principles of ALARA. CT DOSE: 1147.93 mGy.cm COMPARISON STUDY: No previous studies for comparison. FINDINGS: There are no lesion suspicious for aneurysm. There are no major intracranial branch occlusions. The dural venous sinuses appear patent. There is a origin of the left posterior cerebral artery IMPRESSION: Unremarkable CT angiography of the brain. Electronically signed by: Jefferson Yates M.D. 12/05/2018 2:[address] ANGIOGRAPHY OF THE NECK WITH CONTRAST CLINICAL HISTORY: Slurred speech. Evaluate for cerebrovascular accident. COMPARISON STUDY: MRA of the neck January 04, 2011. Technique: CT angiography of the carotid and vertebral arteries was obtained using Optiray 320 IV and 3D reconstruction on an independent workstation. NASCET criteria was utilized. Automated exposure control was utilized for the study. A dose lowering technique was utilized adhering to the principles of ALARA. Findings: There is moderate atherosclerotic plaque within the proximal bilateral internal carotid arteries without stenosis. The bilateral vertebral arteries are patent. There is no dissection or aneurysm within the major vessels of the neck. Lung apices are clear. There is no cervical lymphadenopathy. There is no cervical spine fracture. IMPRESSION: 1. Moderate atherosclerotic plaque within the proximal bilateral internal carotid arteries without stenosis. 2. No dissection. Electronically signed by: Shubham Vasques M.D. 12/05/2018 2:50 PM ECG Data Attestation: I personally reviewed and interpreted this ECG as follows: Indication: weakness Rate (beats per minute): 98 Rhythm: normal sinus Findings: + other (Poor R wave progression noted ); no PAC and no PVC Comparison ECG Date: from (03/26/12) Change: no significant change Blood Pressure Blood Pressure Findings: Elevated blood pressure Blood Pressure Disposition: further management by hospitalist NATALIA Way The patient is a 4-year-old female who presented to the emergency department by ambulance from her primary care physician's office for left-sided weakness. The patient initially went to see her primary care physician today because of left sided elbow pain. She denies any trauma to the elbow and on physical exam this appears to be consistent with pain over the ulnar groove. The patient was noted to have left facial droop and left arm and leg weakness by her primary care physician. The ambulance was called. The patient was made a stroke alert prior to arrival. On my evaluation the patient had already started to have an improvement of her symptoms. Ultimately when the patient was evaluated by the [facility] stroke neurologist her NIH had dropped to 0-1 which also include her deficits from her previous stroke. I discussed the patient's laboratory and radiographic studies with her and her significant other. I also discussed this case with the on-call [facility] hospitalist group. They have agreed to evaluate the patient in the emergency department for further management and disposition. Impression & Plan TIA (transient ischemic attack) Discharge Plan Visit Data *Final* Discharge Date/Time: 12/05/18 17:08 Chief Complaint: Stroke/CVA Symptoms ED Provider: Hung Pena Discharge Problem: TIA (transient ischemic attack) Patient Disposition: Admitted As Inpatient Discharge Instructions Interventions: ED Discharge Assessment Last Done: 12/05/18 17:08 The scribe's documentation has been prepared under my direction and personally reviewed by me in its entirety. I confirm that the note above accurately reflects all work, treatment, procedures, and medical decision making performed by me.
[2018-12-05 15:21] LABS: Albumin Globulin Ratio 1.1 (0.9-2); Alkaline Phosphatase 96 U/L (45-117); Bilirubin,Total 0.4 mg/dl (0.2-1); Globulin 3.2 gm/dl (2.5-4.0); Total Protein 6.8 gm/dl (6.4-8.2); Troponin I < 0.015 ng/ml (0-0.045)
--- NOTE | 2018-12-05 15:29 | XRay Report ---
XR elbow LT min 3V routine CLINICAL HISTORY: pain pain COMPARISON: None. DISCUSSION: The bones and joint spaces appear intact. There is no evidence of fracture, dislocation o r bony disease. There is no evidence for soft tissue swelling. Findings suggestive of an old avulsion from the medial humeral condyle. No significant joint effusion IMPRESSION: No acute process. The above report was generated using voice recognition software. It may contain grammatical, syntax or spelling errors. Electronically signed by: Daniel York M.D. 12/05/2018 3:28 PM
--- NOTE | 2018-12-05 16:45 | History & Physical Report ---
Date of Service December 05, 2018 Assessment & Plan (1) TIA (transient ischemic attack): CT head negative CT angio neck shows moderate plaque MRI brain shows no acute ischemic stroke, shows scattered white matter changes, microvessel disease symptoms all resolved, no further left sided weakness no facial droop on exam, no slurred speech consult neurology, [place]in[place], follows with Dr. Pickett check lipid panel, Hb A1c permissive hypertension Aspirin, add Plavix for possible small stroke continue on Lipitor observe on tele for arrhythmias, check echocardiogram (2) Left elbow pain: unclear diagnosis could be gouty arthritis given acute onset without trauma give Colchicine to see if symptoms improve no signs of septic arthritis on exam, minimal warmth, no real swelling no fever, no leukocytosis will follow for clinical improvement no abnormalities on elbow X-ray (3) DM type 2 (diabetes mellitus, type 2): hold oral agents continue Basaglar 30 units Novolog SS (4) Anxiety: continue home meds (5) Depression: (6) GERD (gastroesophageal reflux disease): PPI (7) COPD (chronic obstructive pulmonary disease): Advair History of Present Illness Chief Complaint: My left side went numb Primary Care Provider: HERMES Wan 58 yo female with history of DM type II, anxiety and prior ischemic stroke in 2010 causing left sided weakness, presented to the ED from her PCP office for stroke like symptoms. The patient says she was in her usual state of health until this morning. She woke up and her left elbow was in severe pain. The joint felt a little swollen and warm and she could not flex or extend the joint due to sharp, shooting pain. Her left fingertips were a little numb. She says that she still has residual numbness aroung the left side of her mouth, her left hand and her left leg and her left leg is still slightly weak. She went to her PCP office to have the elbow evaluated. While sitting in a chair she felt her left face start to go numb and then her left arm and left leg were numb. The aides at the office noted that she had a left sided facial droop and she was slurring her speech. No changes in vision, no weakness. She never attempted to ambulate so she is not sure if she had loss of balance or abnormal gait. EMS brought her to the ED and stroke alert was called prior to arrival. Rapid evaluation with CT head and CT angio of the head and neck saw no bleeding and no thrombus. Tele stroke neurologist examined patient. Symptoms started to improve while in the ED so tPA was not administered. Vital signs and labs were unremarkable. She passed bedside swallow study. She was given aspirin. She says that she has been working on her sugar control at home with her DM type II. One year ago her HbA1c was 11 and her dose of Lantus was increased and she has been more compliant with diet. Most recent A1c was 8 which pleased her. She has no history of HTN. She takes Lipitor for prior stroke and dyslipidemia. She has not had an echocardiogram recently. Carries no history of CAD or heart failure. Allergies Allergy/AdvReac Type Severity Reaction Status Date / Time No Known Allergies Allergy Unknown Verified 12/05/18 15:33 Home Medications Home Medications Medication Instructions Recorded Confirmed Type albuterol sulfate [ProAir HFA] 2 puff INHALATION Q4 PRN 12/05/18 12/05/18 History aspirin [Aspir-81] 81 mg PO DAILY 12/05/18 12/05/18 History atorvastatin 80 mg PO HS 12/05/18 12/05/18 History buspirone 5 mg PO BID 12/05/18 12/05/18 History escitalopram oxalate 10 mg PO DAILY 12/05/18 12/05/18 History fluticasone propion-salmeterol 1 puff INHALATION BID PRN 12/05/18 12/05/18 History [Advair Diskus] insulin glargine [Basaglar KwikPen 30 unit SUBCUT HS 12/05/18 12/05/18 History U-100 Insulin] lisinopril 10 mg PO DAILY 12/05/18 12/05/18 History metformin 1,000 mg PO BID 12/05/18 12/05/18 History naproxen 500 mg PO BID 12/05/18 12/05/18 History omeprazole 20 mg PO DAILY 12/05/18 12/05/18 History potassium 99 mg PO DAILY 12/05/18 12/05/18 History Past Med/Surg History Medical History Diabetes Hypertension Stroke Family History Other Diabetes Hypertension No pertinent family history in first degree relatives Social History Preferred Language: Bruneian Communication Ability: Effective Supervisor [employer] Required: No Beliefs That Will Affect Care: None Current Living Situation: Spouse Feels Safe at Home: Yes Smoking Status: Current every day smoker Tobacco Type: cigarettes Tobacco Cessation Education Requested by Patient: No Hx Alcohol Use: No Review of Systems Review of Systems: All systems reviewed & are unremarkable except as noted in HPI & below Musculoskeletal: + joint pain (left elbow, severe) Neurologic: + localized weakness (left leg, chronic issue), + numbness (left perioral region, left hand, left leg) and + abnormal speech (slurred speech at time of symptoms); no gait abnormality, no unsteadiness, no falls, no tingling, no lack of coordination, no dizziness, no syncope, no headache(s), no behavioral changes and no confusion Physical Exam Constitutional: WD/WN, vitals as above Eyes: PERRL, conjunctivae normal, anicteric sclerae ENMT: external ear and nose normal, oropharynx normal Neck: trachea midline, no thyromegaly Respiratory: normal respiratory effort, lungs clear to auscultation Cardiovascular: RRR, no murmur, no edema Gastrointestinal (Abdomen): normal bowel sounds, soft, nontender, no hepato splenomegaly Musculoskeletal: no cyanosis or clubbing, extremities motor strength 5/5 Head/Neck/Chest: normocephalic and head atraumatic Extremities: + limited ROM of extremities (cannot flex or extend left elbow due to pain) and + joint enlargement (minimal swelling of the left elbow, mild warmth along medial surf jacinto); no cyanosis and no clubbing Neurologic: patellar DTR's 2+ bilat, sensation intact and PERRL, EOMI, accommodation nl, no face palsy, no dysarthria normal touch/pa in/proprioception Psychiatric: A+Ox3, euthymic affect Lymphatic: no cervical or axillary lymphadenopathy Results & Data Vital Signs (Past 12 Hours) Vital Signs Temp Pulse Resp BP Pulse Ox 12/05/18 16:30 71 153/94 H 93 12/05/18 16:16 62 142/92 H 95 12/05/18 16:15 74 94 12/05/18 16:02 69 95 12/05/18 16:01 79 18 157/74 H 94 12/05/18 16:00 68 92 12/05/18 15:45 63 157/94 H 94 12/05/18 15:30 70 136/85 94 12/05/18 15:15 78 146/109 H 95 12/05/18 15:00 90 167/103 H 93 12/05/18 14:38 37 C 89 18 163/102 H 97 Laboratory Results Laboratory Results - last 24 hr 12/05/18 12/05/18 12/05/18 14:40 14:49 14:49 WBC 9.98 RBC 4.33 Hgb 14.8 Hct 44.2 MCV 102.1 H MCH 34.2 H MCHC 33.5 RDW Std Deviation 51.9 H RDW Coeff of Piero 13.8 Plt Count 170 MPV 10.5 H Immature Gran % (Auto) 0.3 Neut % (Auto) 68.8 Lymph % (Auto) 24.0 [place] % (Auto) 5.0 Eos % (Auto) 1.7 Baso % (Auto) 0.2 Immature Gran # (Auto) 0.03 H Neut # (Auto) 6.86 H Lymph # (Auto) 2.40 [place] # (Auto) 0.50 Eos # (Auto) 0.17 Baso # (Auto) 0.02 PT 10.3 INR 1.0 APTT 27.2 PTT Ratio 1.0 Sodium Potassium Chloride Carbon Dioxide Anion Gap BUN Creatinine Est Cr Clr Drug Dosing Est GFR ( Amer) Est GFR (Non-Af Amer) BUN/Creatinine Ratio Glucose POC Glucose 116 H Calcium Magnesium Total Bilirubin AST ALT Alkaline Phosphatase Troponin I Total Protein Albumin Globulin Albumin/Globulin Ratio Blood Type Antibody Screen 12/05/18 12/05/18 12/05/18 14:49 14:49 17:58 WBC RBC Hgb Hct MCV MCH MCHC RDW Std Deviation RDW Coeff of Piero Plt Count MPV Immature Gran % (Auto) Neut % (Auto) Lymph % (Auto) [place] % (Auto) Eos % (Auto) Baso % (Auto) Immature Gran # (Auto) Neut # (Auto) Lymph # (Auto) [place] # (Auto) Eos # (Auto) Baso # (Auto) PT INR APTT PTT Ratio Sodium 138 Potassium 4.3 Chloride 107 Carbon Dioxide 26 Anion Gap 5.0 BUN 12 Creatinine 0.70 Est Cr Clr Drug Dosing Not Reportable Est GFR ( Amer) 109.1 Est GFR (Non-Af Amer) 94.2 BUN/Creatinine Ratio 17.5 Glucose 112 H POC Glucose 100 H Calcium 8.5 Magnesium 1.9 Total Bilirubin 0.4 AST 13 L ALT 27 Alkaline Phosphatase 96 Troponin I < 0.015 Total Protein 6.8 Albumin 3.6 Globulin 3.2 Albumin/Globulin Ratio 1.1 Blood Type O Positive Antibody Screen NEGATIVE Diagnostic Findings Brain MRI WITH AND WITHOUT CONTRAST FINDINGS: There is no mass, hematoma, midline shift, or acute infarct. The paranasal sinuses are clear. The mastoid air cells are clear. Scattered foci of T2 hyperintensity seen within the periventricular and subcortical white matter are nonspecific but suggestive of mild microvascular ischemic changes. The major vascular flow voids at the skull base are well-maintained. The ventricles and sulci are within normal limits. There is an old small right thalamic infarct. No change in the small right frontal lobe developmental venous anomaly. This is considered to be a normal variant. IMPRESSION: No acute intracranial abnormality. Scattered foci of T2 hyperintensity seen within the periventricular and subcortical white matter are nonspecific but favor microvascular mild ischemic change. XR elbow LT min 3V routine DISCUSSION: The bones and joint spaces appear intact. There is no evidence of fracture, dislocation or bony disease. There is no evidence for soft tissue swelling. Findings suggestive of an old avulsion from the medial humeral condyle. No significant joint effusion IMPRESSION: No acute process. CT ANGIOGRAM NECK IMPRESSION: 1. Moderate atherosclerotic plaque within the proximal bilateral internal carotid arteries without stenosis. 2. No dissection. CT HEAD AND CT ANGIOGRAM HEAD: unremarkable XR chest 1V portable FINDINGS: Mild stable cardiomegaly. Prominent parenchymal markings at the right and to lesser extent left base. This is unchanged compared to the prior study. Prominent pulmonary vasculature. IMPRESSION: Probable developing components of congestive heart failure. Code Status & VTE Plan Code Status full code VTE Prophylaxis Plan VTE Prophylaxis will be ordered: Yes
[2018-12-05] MEDS ORDERED: ONDANSETRON INJ 2 MG/ML 2 ML VIAL IV PRN (17:23)
[2018-12-05] MEDS ORDERED: COLCHICINE 0.6 MG TAB PO ONE (17:23)
[2018-12-05] MEDS ORDERED: PHARMACIST DISCHARGE MED REC CONSULT PRN (17:23)
[2018-12-05] MEDS ORDERED: ACETAMINOPHEN 325 MG TAB PO PRN (17:23)
[2018-12-05] MEDS: KETOROLAC TROMETHAMINE 15 MG/ML VIAL IV PRN (18:15)
[2018-12-05] MEDS: SODIUM CHLORIDE 0.9% 1000ML 1,000 ML IV SCH (18:23)
[2018-12-05] MEDS: ENOXAPARIN INJ 40 MG/0.4 ML SYR SQ SCH (20:07)
[2018-12-05] MEDS: COLCHICINE 0.6 MG TAB PO SCH (20:07)
[2018-12-05] MEDS: ATORVASTATIN 40 MG TAB PO SCH (20:07)
[2018-12-05] MEDS ORDERED: GADOBUTROL 65ML VIAL IV PRN (20:51)
--- NOTE | 2018-12-05 21:17 | Magnetic Resonance Report ---
Brain MRI WITH AND WITHOUT CONTRAST HISTORY: Left-sided paresthesias. stroke TECHNIQUE: Multiplanar multisequence MRI of the brain was performed both before and after the intrave nous administration of contrast. COMPARISON STUDY: Head CT 12/05/2018. Brain MRI 01/04/2011. FINDINGS: There is no mass, hematoma, midline shift, or acute infarct. The paranasal sinuses are irene r. The mastoid air cells are clear. Scattered foci of T2 hyperintensity seen within the periventricul ar and subcortical white matter are nonspecific but suggestive of mild microvascular ischemic changes . The major vascular flow voids at the skull base are well-maintained. The ventricles and sulci are w ithin normal limits. There is an old small right thalamic infarct. No change in the small right front al lobe developmental venous anomaly. This is considered to be a normal variant. IMPRESSION: No acute intracranial abnormality. Scattered foci of T2 hyperintensity seen within the periventricula r and subcortical white matter are nonspecific but favor microvascular mild ischemic change. Electronically signed by: Dick Glez M.D. 12/05/2018 9:15 PM
[2018-12-05] MEDS ORDERED: GLUCAGON FOR INJ 1 MG VIAL SQ PRN (22:00)
[2018-12-05] MEDS ORDERED: GLUCOSE 10 TABS/TUBE PO PRN (22:00)
[2018-12-05] MEDS ORDERED: GLUCOSE 40% GEL 15 GM TUBE PO PRN (22:00)
[2018-12-05] MEDS ORDERED: CARBOHYDRATES FOR HYPOGLYCEMIA PO PRN (22:00)
[2018-12-05] MEDS ORDERED: INSULIN GLARGINE SOLOSTAR 100 UNITS/ML 3 ML PEN SC SCH (22:00)
[2018-12-05] MEDS ORDERED: DEXTROSE 50% 50 ML SYRINGE IV PRN (22:00)
[2018-12-06] MEDS: KETOROLAC TROMETHAMINE 15 MG/ML VIAL IV PRN ×3 (00:29→21:35)
[2018-12-06 06:48] LABS: Basophils # (auto) 0.02 K/uL (0-0.2); Basophils % (auto) 0.2 %; Eosinophils # (auto) 0.23 K/uL (0-0.5); Eosinophils % (auto) 2.9 %; Hematocrit (blood only) 41.5 % (37-47); Hemoglobin 13.7 g/dL (12.0-16.0); Immature Granulocytes # (auto) 0.01 K/uL (0.00-0.02); Immature Granulocytes % (auto) 0.1 %; Lymphocytes # (auto) 2.47 K/uL (1.2-3.4); Lymphocytes % (auto) 30.6 %; Mean Platelet Volume 10.6 fL (7.4-10.4); Neutrophils # (auto) 4.94 K/uL (1.4-6.5); Neutrophils % (auto) 61.2 %; Platelet Count 156 K/uL (130-400); RDW Coefficient of Variation 13.6 % (11.5-14.5); Red Blood Count 4.07 M/uL (4.2-5.4); White Blood Count 8.07 K/uL (4.8-10.8)
[2018-12-06 07:28] LABS: BUN Creatinine Ratio 26.4 (10-20); Calcium 8.7 mg/dl (8.5-10.1); Creatinine Clr Calc Pharmacy 127.6 ml/min; Est GFR (African American) 120.4; Est GFR (Non-African American) 103.9; Potassium 3.9 mmol/L (3.5-5.1); Uric Acid 3.7 mg/dl (2.6-7.2)
[2018-12-06] MEDS: COLCHICINE 0.6 MG TAB PO SCH ×2 (07:59→21:32)
[2018-12-06] MEDS: ASPIRIN 81 MG ECTAB PO SCH (07:59)
[2018-12-06] MEDS: INSULIN ASPART 100 UNITS/ML 3 ML PEN SC SCH ×4 (08:01→21:33)
[2018-12-06] MEDS: SODIUM CHLORIDE 0.9% 1000ML 1,000 ML IV SCH (08:04)
[2018-12-06 08:26] LABS: Estimated Average Glucose 209 mg/dl; Hemoglobin A1C 8.9 % (4.5-5.6)
[2018-12-06] MEDS ORDERED: CLOPIDOGREL BISULFATE 75 MG TAB PO SCH (09:00)
[2018-12-06] MEDS ORDERED: predniSONE 20 MG TAB PO STA (10:09)
--- NOTE | 2018-12-06 10:49 | Communication Note ---
Date of Service: December 06, 2018 I have seen Mrs. Duran today examined her reviewed her history her laboratory studies and her imaging. Currently she is back to her neurologic baseline with some minor left facial droop and some low-grade objective sensory loss in the left face but the more dramatic left arm and leg and facial sensory loss that was described yesterday is no longer present and has cleared completely back to baseline. Pain in left elbow and the joint is hot but not particularly erythematous. Range of motion is limited in my examination of the arm is therefore probably somewhat impaired but there is no gross evidence for an upper motor neuron or upper sensory neuron type of lesion Imaging studies have shown nothing new involving the right hemisphere or the per i-thalamic region where her prior stroke in 2011 occurred he does have evidence of small vessel disease no evidence for significant extracranial artery disease. Echocardiography I assume is pending At this time I agree with the addition of Plavix to her aspirin, would continue it for 21 days and then drop the aspirin and continue Plavix as a single agent. I will return tomorrow to reassess her case and hopefully be able to review an echocardiogram to be certain there was no potential embolic versus for this transient ischemic event. I will set her up for a follow-up visit in my office probably in about 4-6 weeks Full consultation has been dictated but would not be typed until later today or perhaps tomorrow Seb Pickett MD
--- NOTE | 2018-12-06 12:15 | Consultation Report ---
DATE OF CONSULTATION: 12/06/2018 HISTORY OF PRESENT ILLNESS: Raquel is 58 years old, is right handed, is a patient of [facility] and is known to me for the past several years regarding her residual left hemisensory issues following a right thalamic infarct about 5 years ago. She has done well, has had no recurrent symptoms, although when under stress, she will sometimes have more paresthesias of the left face, arm, and leg. In this setting, she also has a number of problems with diabetes, hypertension. She is a cigarette smoker. She is moderately overnourished and has allof these treated chronically with a stable medication list for over a year Yesterday morning she woke up with extreme pain in her left elbow with swelling and some numbness in her fingers of the left hand beyond the ulnar distribution. There was some tenderness in the medial portion of her elbow and she could not move the arm. She sought advice from a physician, while in the waiting room apparently developed more numbness and tingling of her left face, left arm and left leg and at that point was sent to the Emergency Room, admitted and was put through an evaluation here including CTAs, CT scans, MRIs, etc. After the dye administration for the CTA, which subsequently proved to show no significant vessel disease, all of her symptoms began to resolve and the MRI subsequently has shown no new evidence for an infarction in the area of the right thalamus, but does show the old areas of infarction consistent with small vessel disease consistent with her vascular risk factors. She was brought in as a stroke alert, but because her symptoms were improving, it was felt that TPA did not need to be administered and she was simply admitted to the hospital and was given colchicine for her gout. The left arm is still quite painful, but she thinks the swelling seems to be reduced, but a little more time is going to be needed for this particular problem to resolve. Neurologically, she has been quite asymptomatic, but appropriately she has been placed on Plavix plus aspirin and this will probably continue for 3-4 weeks after discharge acting on the assumption this was a TIA. PAST MEDICAL HISTORY: As noted above includes the dyslipidemia, obesity, diabetes, hypertension, small vessel disease and prior stroke. HOME MEDICATIONS: Include albuterol, aspirin, atorvastatin, BuSpar, Lexapro, fluticasone, insulin, lisinopril, metformin, Naprosyn, omeprazole, and potassium. ALLERGIES: She has no known drug allergies. PAST SURGICAL HISTORY: Reveals no significant procedures. FAMILY HISTORY: Positive for diabetes and hypertension. SOCIAL HISTORY: Reveals recent stress in her family because of her 's diagnosis of lymphoma and a course of chemotherapy that was not well tolerated. She continues to smoke. She does not consume ethanol. She is and this is a second marriage. REVIEW OF SYSTEMS: Review is positive only for the acute left elbow pain and the transient probable several-hour duration of left arm and leg and face numbness and perhaps some weakness, all of which is resolved. Otherwise, there have been no specific new issues referable to head, eyes, ears, nose and throat, cardiovascular, pulmonary, gastrointestinal, genitourinary, musculoskeletal, dermatologic, hematologic, or endocrinologic systems. PHYSICAL EXAMINATION: VITAL SIGNS: Her blood pressure was apparently 170/110, pulse was 70, respirations were 16. She was afebrile. GENERAL: She was well developed, slightly overnourished, appeared to be in modest degree of distress because of her elbow pain, could not move the arm fully. HEENT: Examination was unremarkable. CAROTIDS: Free of bruits. LUNGS: Clear. HEART: Had a regular rhythm. ABDOMEN: Obese, but no organomegaly was appreciated. EXTREMITIES: Free of edema, but there is a lot of pain, restricted range of motion, at the elbow but no erythema and mild edema over the left medial elbow extending in the upper arm and down into the forearm. NEUROLOGIC: Examination now reveals perhaps some mild left facial asymmetry, which has been chronic. It is virtually impossible to assess the left arm, but her primary care nurse practitioner strength when the arm can be held in a nonpainful position seems to be good. Facility of rapid repetitive motions again allowing for the restriction due to pain is normal. There is no real sensory loss. Left leg function is quite normal without reflex asymmetry, weakness, loss of facility or sensory loss. Right-sided findings are quite normal. She has no drift or pronation sign, tremor, tics or choreiform activity. Visual fajardo are full. Facial sensation is grossly intact. At this point, I suspect this was a TIA. I cannot relate this to whatever is causing the left elbow pain, which I think is a separate entity. This could be gout, but the location is a little atypical and I agree with observation for a possible septic joint would need to be considered. Right now, I agree also with the use of adding Plavix to the aspirin, but we will probably only do this for about 21 days and then switch to pure Plavix as we would have to consider an aspirin failure with the event having occurred while she was taking aspirin. I will check back with her tomorrow and see how she is doing and we will make arrangements for neurologic followup at that point, but at this time, I do not think she needs any further neurologic assessments or diagnostic studies. ZAC
--- NOTE | 2018-12-06 14:06 | Hospitalist Progress Note ---
Date of Service December 06, 2018 Assessment & Plan (1) TIA (transient ischemic attack): CT head negative CT angio neck shows moderate plaque MRI brain shows no acute ischemic stroke, shows scattered white matter changes, microvessel disease symptoms all resolved, no further left sided weakness no facial droop on exam, no slurred speech consult neurology, Corinna, follows with Dr. Pickett not a stroke likely caused by stress, worsened prior stroke symptoms lipids: LDL at goal Hb A1c pending permissive hypertension continue aspirin for possible small stroke continue on Lipitor echo shows EF 55%, negative bubble study transfer to medical floor, PT/OT (2) Left elbow pain: unclear diagnosis could be gouty arthritis given acute onset without trauma give Colchicine to see if symptoms improve --NO IMPROVEMENT no signs of septic arthritis on exam, minimal warmth, no real swelling no fever, no leukocytosis could be reactive arthritis, will treat with Prednisone and see if she returns if feeling better then this would confirm the reactive arthritis (3) DM type 2 (diabetes mellitus, type 2): hold oral agents continue Basaglar 30 units Novolog SS with Novolog and Lantus (4) Anxiety: continue home meds (5) Depression: mood stable (6) GERD (gastroesophageal reflux disease): PPI (7) COPD (chronic obstructive pulmonary disease): Advair Review of Systems Review of Systems: All systems reviewed & are unremarkable except as noted in HPI & below Musculoskeletal: + joint pain (left elbow) and + swelling Physical Exam Constitutional: WD/WN, vitals as above Eyes: PERRL, conjunctivae normal, anicteric sclerae ENMT: external ear and nose normal, oropharynx normal Neck: trachea midline, no thyromegaly Respiratory: normal respiratory effort, lungs clear to auscultation Cardiovascular: RRR, no murmur, no edema Gastrointestinal (Abdomen): normal bowel sounds, soft, nontender, no hepatosplenomegaly Musculoskeletal: no cyanosis or clubbing, extremities motor strength 5/5 Head/Neck/Chest: normocephalic and head atraumatic Extremities: + limited ROM of extremities (cannot flex or extend left elbow due to pain) and + joint enlarg ement (minimal swelling of the left elbow, mild warmth along medial surface); no cyanosis and no clubbing Neurologic: patellar DTR's 2+ bilat, sensation intact and PERRL, EOMI, accommodation nl, no face palsy, no dysarthria normal touch/pain/proprioception Psychiatric: A+Ox3, euthymic affect Lymphatic: no cervical or axillary lymphadenopathy Results & Data Vital Signs (Past 12 Hours) Vital Signs Temp Pulse Resp BP Pulse Ox 12/06/18 11:58 156/84 H 12/06/18 11:27 36.8 C 58 L 20 93 12/06/18 07:03 129/84 12/06/18 06:59 36.8 C 66 18 93 12/06/18 02:35 36.7 C 51 L 18 124/68 93 Laboratory Results Laboratory Results - last 24 hr 12/05/18 12/05/18 12/06/18 14:49 21:20 06:08 WBC 8.07 RBC 4.07 L Hgb 13.7 Hct 41.5 MCV 102.0 H MCH 33.7 MCHC 33.0 RDW Std Deviation 51.0 H RDW Coeff of Piero 13.6 Plt Count 156 MPV 10.6 H Immature Gran % (Auto) 0.1 Neut % (Auto) 61.2 Lymph % (Auto) 30.6 [place] % (Auto) 5.0 Eos % (Auto) 2.9 Baso % (Auto) 0.2 Immature Gran # (Auto) 0.01 Neut # (Auto) 4.94 Lymph # (Auto) 2.47 [place] # (Auto) 0.40 Eos # (Auto) 0.23 Baso # (Auto) 0.02 Sodium Potassium Chloride Carbon Dioxide Anion Gap BUN Creatinine Est Cr Clr Drug Dosing Est GFR ( Amer) Est GFR (Non-Af Amer) BUN/Creatinine Ratio Glucose POC Glucose 127 H Estimat Average Glucose 209 Hemoglobin A1c 8.9 H Uric Acid Calcium Triglycerides Cholesterol LDL Cholesterol, Calc VLDL Cholesterol, Calc HDL Cholesterol Cholesterol/HDL Ratio 12/06/18 12/06/18 12/06/18 06:08 07:33 11:23 WBC RBC Hgb Hct MCV MCH MCHC RDW Std Deviation RDW Coeff of Piero Plt Count MPV Immature Gran % (Auto) Neut % (Auto) Lymph % (Auto) [place] % (Auto) Eos % (Auto) Baso % (Auto) Immature Gran # (Auto) Neut # (Auto) Lymph # (Auto) [place] # (Auto) Eos # (Auto) Baso # (Auto) Sodium 142 Potassium 3.9 Chloride 110 H Carbon Dioxide 26 Anion Gap 6.0 BUN 14 Creatinine 0.52 L Est Cr Clr Drug Dosing 127.6 Est GFR ( Amer) 120.4 Est GFR (Non-Af Amer) 103.9 BUN/Creatinine Ratio 26.4 H Glucose 111 H POC Glucose 119 H 210 H Estimat Average Glucose Hemoglobin A1c Uric Acid 3.7 Calcium 8.7 Triglycerides 191 H Cholesterol 101 LDL Cholesterol, Calc 34 VLDL Cholesterol, Calc 38 HDL Cholesterol 29 Cholesterol/HDL Ratio 4 12/06/18 12/06/18 16:43 20:09 WBC RBC Hgb Hct MCV MCH MCHC RDW Std Deviation RDW Coeff of Piero Plt Count MPV Immature Gran % (Auto) Neut % (Auto) Lymph % (Auto) [place] % (Auto) Eos % (Auto) Baso % (Auto) Immature Gran # (Auto) Neut # (Auto) Lymph # (Auto) [place] # (Auto) Eos # (Auto) Baso # (Auto) Sodium Potassium Chloride Carbon Dioxide Anion Gap BUN Creatinine Est Cr Clr Drug Dosing Est GFR ( Amer) Est GFR (Non-Af Amer) BUN/Creatinine Ratio Glucose POC Glucose 211 H 272 H Estimat Average Glucose Hemoglobin A1c Uric Acid Calcium Triglycerides Cholesterol LDL Cholesterol, Calc VLDL Cholesterol, Calc HDL Cholesterol Cholesterol/HDL Ratio Medications Administered Current Inpatient Medications Acetaminophen (Tylenol) 650 mg PO Q4H PRN PRN Reason: Pain or Fever Stop: 01/04/19 17:22 Aspirin (Ecotrin Ectab) 81 mg PO QAM [facility] Stop: 01/05/19 08:59 Last Admin: 12/06/18 07:59 Dose: 81 mg Documented by: Atorvastatin Calcium (Lipitor) 80 mg PO HS [facility] Stop: 01/04/19 20:59 Last Admin: 12/05/18 20:07 Dose: 80 mg Documented by: Colchicine (Colcrys) 0.6 mg PO BID [facility] Stop: 01/04/19 20:59 Last Admin: 12/06/18 07:59 Dose: 0.6 mg Documented by: Dextrose (Dextrose 50%) 25 - 50 ml IV UD PRN; Protocol PRN Reason: Hypoglycemia Protocol Stop: 01/04/19 21:59 Enoxaparin Sodium (Lovenox) 40 mg SQ Q24H [facility] Stop: 01/04/19 17:59 Last Admin: 12/06/18 18:06 Dose: 40 mg Documented by: Glucagon (Glucagen) 1 mg SQ UD PRN; Protocol PRN Reason: Hypoglycemia Protocol Stop: 01/04/19 21:59 Glucose (Glucose 40%) 15 - 30 gm PO UD PRN; Protocol PRN Reason: Hypoglycemia Protocol Stop: 01/04/19 21:59 Glucose (Dex4 Glucose) 4 - 8 tabs PO UD PRN; Protocol PRN Reason: Hypoglycemia Protocol Stop: 01/04/19 21:59 Insulin Aspart (Novolog Flexpen) 0 units SC ACHS [facility] Stop: 01/05/19 07:29 Last Admin: 12/06/18 18:04 Dose: 12 units Documented by: Insulin Glargine (Lantus Solostar Pen) 32 units SC HS [facility] Stop: 01/05/19 20:59 Ketorolac Tromethamine (Toradol) 15 mg IV Q6H PRN PRN Reason: Pain Stop: 12/10/18 17:22 Last Admin: 12/06/18 07:55 Dose: 15 mg Documented by: Miscellaneous (Carbohydrates For Hypoglycemia) 15 - 30 gm PO UD PRN PRN Reason: Hypoglycemia Treatment Stop: 01/04/19 21:59 Miscellaneous Information (Pharmacist Discharge Med Rec Consult) 1 ea N/A UD PRN PRN Reason: Consult Stop: 01/04/19 17:22 Ondansetron HCl (Zofran) 4 mg IV Q6H PRN PRN Reason: Nausea Stop: 01/04/19 17:22 Pred[facility]Pred[facility]one) [facility] [place] Stop: 01/06/19 08:59
[2018-12-06] MEDS: ENOXAPARIN INJ 40 MG/0.4 ML SYR SQ SCH (18:06)
[2018-12-06] MEDS ORDERED: INSULIN GLARGINE SOLOSTAR 100 UNITS/ML 3 ML PEN SC SCH ×2 (21:00)
[2018-12-06] MEDS ORDERED: LANTUS PER UNIT CHARGE SQ SCH (21:00)
[2018-12-06] MEDS: ATORVASTATIN 40 MG TAB PO SCH (21:32)
[2018-12-07] MEDS: KETOROLAC TROMETHAMINE 15 MG/ML VIAL IV PRN ×2 (03:20→09:36)
[2018-12-07 05:46] LABS: Basophils # (auto) 0.01 K/uL (0-0.2); Basophils % (auto) 0.1 %; Eosinophils # (auto) 0.11 K/uL (0-0.5); Hemoglobin 13.5 g/dL (12.0-16.0); Immature Granulocytes # (auto) 0.03 K/uL (0.00-0.02); Immature Granulocytes % (auto) 0.3 %; Lymphocytes # (auto) 2.48 K/uL (1.2-3.4); Lymphocytes % (auto) 23.4 %; Mean Corpuscular Hgb Conc 34.6 g/dL (32-36); Mean Platelet Volume 10.6 fL (7.4-10.4); Monocytes # (auto) 0.76 K/uL (0.11-0.59); Monocytes % (auto) 7.2 %; Neutrophils # (auto) 7.23 K/uL (1.4-6.5); Platelet Count 151 K/uL (130-400); RDW Coefficient of Variation 13.4 % (11.5-14.5); RDW Standard Deviation 48.1 fL (36.4-46.3); Red Blood Count 3.98 M/uL (4.2-5.4); White Blood Count 10.62 K/uL (4.8-10.8)
[2018-12-07 06:17] LABS: BUN Creatinine Ratio 33.2 (10-20); Calcium 8.7 mg/dl (8.5-10.1); Creatinine Clr Calc Pharmacy 116.4 ml/min; Est GFR (African American) 116.8; Est GFR (Non-African American) 100.8; Potassium 3.8 mmol/L (3.5-5.1)
[2018-12-07] MEDS: ASPIRIN 81 MG ECTAB PO SCH (08:32)
[2018-12-07] MEDS: COLCHICINE 0.6 MG TAB PO SCH (08:32)
[2018-12-07] MEDS: INSULIN ASPART 100 UNITS/ML 3 ML PEN SC SCH (08:35)
[2018-12-07] MEDS ORDERED: predniSONE 20 MG TAB PO SCH (09:00)
--- NOTE | 2018-12-07 10:40 | Communication Note ---
Date of Service: December 07, 2018 I saw Raquel today in follow-up and noted that she is significantly improved in terms of her left elbow pain swelling and range of motion she has been placed on steroids and apparently is still on some colchicine. She has had no further events of left face arm and leg numbness she had ever since the vascular event in 2010 The elbow is indeed less tender less swollen and is almost able to be fully extended today In terms of the presumptive TIA I am again going to suggest she be discharged on a combination of Plavix and aspirin for 21 days then stop the aspirin and continue the Plavix alone I will see her back in the office in about 4-6 weeks Terms of the monoarticular arthropathy I have taken liberty of ordering several laboratory tests including a sed rate, Lyme antibody titer with screen, and SILVERIO screen and rheumatoid factor The [facility] hospitalist team is going to determine the tapering course of steroids and she will be followed by her primary care physician at [facility] Seb Pickett MD
[2018-12-07] MEDS ORDERED: CLOPIDOGREL BISULFATE 75 MG TAB PO STA (10:57)
[2018-12-07] MEDS ORDERED: STROKE PATIENT DISCHARGE STA (11:10)
[2018-12-07 12:17] LABS: Lyme Ab IgG w/WB Rflx Negative (Negative); Lyme Ab IgM w/WB Rflx Negative (Negative)
--- NOTE | 2018-12-07 14:01 | Pharmacy Report ---
Pharmacist Stroke Counseling - Date of Service December 07, 2018 - Scope: Pharmacy has been consulted to provide medication discharge counseling for this patient admitted with transient ischemic attack as per the Pharmacist Discharge Counseling for Stroke Patients Protocol. - Medications on Discharge: Home Medications Medication Instructions Recorded Confirmed albuterol sulfate [ProAir HFA] 2 puff INHALATION Q4 PRN 12/05/18 12/05/18 aspirin [Aspir-81] 81 mg PO DAILY 12/05/18 12/05/18 atorvastatin 80 mg PO HS 12/05/18 12/05/18 buspirone 5 mg PO BID 12/05/18 12/05/18 escitalopram oxalate 10 mg PO DAILY 12/05/18 12/05/18 fluticasone propion-salmeterol 1 puff INHALATION BID PRN 12/05/18 12/05/18 [Advair Diskus] lisinopril 10 mg PO DAILY 12/05/18 12/05/18 metformin 1,000 mg PO BID 12/05/18 12/05/18 naproxen 500 mg PO BID 12/05/18 12/05/18 omeprazole 20 mg PO DAILY 12/05/18 12/05/18 potassium 99 mg PO DAILY 12/05/18 12/05/18 New Rx's Medication Instructions Recorded Basaglar KwikPen U-100 Insulin 32 unit SUBCUT HS #0 ml 12/07/18 clopidogrel 75 mg PO DAILY #30 tab 12/07/18 prednisone 40 mg PO QAM #10 tab 12/07/18 - Action: The above medications, specifically ones for stroke treatment/prophylaxis, have been reviewed in detail with the patient and/or patient agency sales representative(s) prior to discharge. This includes indication, common adverse reactions, drug interactions, and medication administration. Medication counseling has been employed using the teach-back method to ensure understanding. - Outcome: The patient and/or patient agency sales representative(s) have demonstrated understanding of the medications. Please note, they are aware that the pharmacist will call them within 72 hours post-discharge to confirm that the appropriate medications are being taken and answer any further medication related questions the patient might have at that time. Contact information Individual to be contacted: Raquel Relationship to patient (if applicable): patient Phone number: [phone] Best time to call: anytime Additional comments: * Raquel is a good historian and very pleasant to talk to. * Overlooked that pt was on omeprazole at home. Will follow up during discharge phone call. * Pt noted that we may leave a message on her answering machine and she will return our call. She stated that she does not coal picker phone calls with unknown numbers. Thank you for allowing pharmacy to be involved in the care of this patient. Please call [phone] or [phone] with any additional questions
--- NOTE | 2018-12-07 16:41 | Discharge Summary ---
Date of Service December 07, 2018 Admission HPI Per Admitting Provider 58 yo female with history of DM type II, anxiety and prior ischemic stroke in 2010 causing left sided weakness, presented to the ED from her PCP office for stroke like symptoms. The patient says she was in her usual state of health until this morning. She woke up and her left elbow was in severe pain. The joint felt a little swollen and warm and she could not flex or extend the joint due to sharp, shooting pain. Her left fingertips were a little numb. She says that she still has residual numbness aroung the left side of her mouth, her left hand and her left leg and her left leg is still slightly weak. She went to her PCP office to have the elbow evaluated. While sitting in a chair she felt her left face start to go numb and then her left arm and left leg were numb. The aides at the office noted that she had a left sided facial droop and she was slurring her speech. No changes in vision, no weakness. She never attempted to ambulate so she is not sure if she had loss of balance or abnormal gait. EMS brought her to the ED and stroke alert was called prior to arrival. Rapid evaluation with CT head and CT angio of the head and neck saw no bleeding and no thrombus. Tele stroke neurologist examined patient. Symptoms started to improve while in the ED so tPA was not administered. Vital signs and labs were unremarkable. She passed bedside swallow study. She was given aspirin. She says that she has been working on her sugar control at home with her DM type II. One year ago her HbA1c was 11 and her dose of Lantus was increased and she has been more compliant with diet. Most recent A1c was 8 which pleased her. She has no history of HTN. She takes Lipitor for prior stroke and dyslipidemia. She has not had an echocardiogram recently. Carries no history of CAD or heart failure. Principal Diagnosis Possible TIA Discharge Exam Constitutional WD/WN, vitals as above Eyes PERRL, conjunctivae normal, anicteric sclerae ENMT external ear and nose normal, oropharynx normal Neck trachea midline, no thyromegaly Respiratory normal respiratory effort, lungs clear to auscultation Cardiovascular RRR, no murmur, no edema Gastrointestinal (Abdomen) normal bowel sounds, soft, nontender, no hepatosplenomegaly Musculoskeletal no cyanosis or clubbing, extremities motor strength 5/5 Head/Neck/Chest: normocephalic and head atraumatic Extremities: + limited ROM of extremities (cannot flex or extend left elbow due to pain) and + joint enlargement (minimal swelling of the left elbow, mild warmth along medial surface); no cyanosis and no clubbing Neurologic patellar DTR's 2+ bilat, sensation intact and PERRL, EOMI, accommodation nl, no face palsy, no dysarthria normal touch/pain/proprioception Psychiatric A+Ox3, euthymic affect Lymphatic no cervical or axillary lymphadenopathy Discharge Data Allergies Allergy/AdvReac Type Severity Reaction Status Date / Time No Known Allergies Allergy Unknown Verified 12/05/18 15:33 Consultations 12/05/18 15:16 ED Decision to Admit Stat 12/05/18 17:23 Consult Case Management - Discharge Planning Routine Consult Neurology Routine Ordered Studies 12/05/18 14:21 CT angio head w con Stat CT angio neck with con Stat CT head/brain wo con Stat 12/05/18 17:23 MR brain wo/w con Routine Hospital Course (1) TIA (transient ischemic attack): MRI brain showed no acute ischemic stroke, shows scattered white matter changes, microvessel disease. - Discharged on 21 days of ASA & Plavix, then will go to only Plavix. - Follow up with Dr. Pickett in 4-6 weeks. (2) Left elbow pain: Unclear diagnosis. Did not improve with colchicine, so thought to be less likely gout. Septic arthritis unlikely given no fever, leukocytosis, or redness on initial exam per notes. Started prednisone on 12/06 with improvement. - Possibly reactive arthritis vs. autoimmune vs. other. - Dr. Pickett ordered SILVERIO, rheumatoid factor, Lyme titer, and ESR/CRP - Discharged on short taper of prednisone; will need to follow up with PCP if it returns. (3) DM type 2 (diabetes mellitus, type 2): hold oral agents continue Basaglar 30 units Novolog SS with Novolog and Lantus (4) Anxiety: continue home meds (5) Depression: mood stable (6) GERD (gastroesophageal reflux disease): PPI (7) COPD (chronic obstructive pulmonary disease): Advair Total Time Total Time Spent Total Time Spent (In Minutes): 35 Total Time Includes: Examination of the Patient, Discharge Planning, Medication Reconciliation and Communication With Other Providers Discharge Plan Discharge Items Patient Disposition: Home - Self-Care Reason For Visit: Possible TIA Discharge Diagnosis: Possible TIA Discharge Goals: Decrease discomfort and Increase independence Activity: Resume your previous activity Non-emergency contact: Primary Care Provider and Neurologist Call non-emergency contact if: you have any medication questions and your pain is worsening Follow-up/Referrals: Erica Portillo CRNP [Primary Care Provider] - Diet: Regular Addtl Provider Instructions: Ms. Duran, you were admitted for a possible stroke. Our MRI of your brain didn't show any stroke, so it is possible you had a TIA (or "mini-stroke"). Dr. Pickett thought you should start Plavix (in addition to your aspirin) for 21 days, then stop the aspirin and only take the Plavix. Your left elbow was painful during this admission, and we treated you with steroids to help reduce inflammation. We are not sure if this was a gout flare (new for you) vs. a reactive arthritis from a viral cold. Dr. Pickett ordered some labs to look for rheumatoid arthritis, Lyme disease, or other autoimmune diseases. These will be back in 1-2 weeks, so you should follow up with your PCP to see what the tests show. For your prednisone: Take 40 mg (4 tabs) tomorrow (Saturday) for 1 day, then 30 mg (3 tabs) x 1 day, then 20 mg x 1 day, then 10 mg x 1 day. Finally, your sugars were high with the steroids. We are giving a short taper of the steroids, so it shouldn't be too high for long. Please increase your Lantus to 32 units every evening for the next two days (Saturday night and Saturday night), then check your AM fasting blood sugars. If it is <150, you can return to your home 30 units of Lantus in the evenings. If it is still high, please contact your PCP to further discuss. If you AM fasting blood sugars are >200, please call your PCP to discuss increasing the Lantus a bit more. Risk Factors for Stroke: You can reduce your chances of stroke by working with your medical provider to adopt a healthy lifestyle. Some specific ways to lower your chance of stroke are: * If you are a smoker, now is the time to stop smoking cigarettes * If you are diabetic, improve the control of your blood sugars * Avoid excessive amounts of alcohol * Control high blood pressure * Lose weight if you are overweight * Be sure to lead an active lifestyle * Eat a healthy diet low in salt, cholesterol and fat You should know about other risk factors for stroke that you are unable to control. These include: * Age 55 years or older * Male gender * Certain racial groups: , or / * Family History of Stroke, Mini stroke or Heart Attack * Sickle Cell Disease Follow Up: It is important for you to keep your follow up appointments with your medical provider. Who to Call and When: Medical Emergencies: Call 911 immediately if you experience any of the following warning signs and symptoms of Stroke: * Sudden numbness or weakness of the face, arm or leg, especially on one side of the body * Sudden confusion, trouble speaking or understanding * Sudden trouble seeing in one or both eyes * Sudden trouble walking, dizziness, loss of balance or coordination * Sudden severe headache with no cause Do not delay calling 911 if you experience any warning signs or symptoms of a stroke. Delay in seeking medical attention may affect what treatments can be given to you. . Prescriptions: New prednisone 10 mg tablet 40 mg PO QAM Qty: 10 RF: 0 clopidogrel 75 mg tablet 75 mg PO DAILY Qty: 30 RF: 1 Continued buspirone 5 mg Tablet 5 mg PO BID RF: 0 atorvastatin 80 mg Tablet 80 mg PO HS RF: 0 aspirin [Aspir-81] 81 mg Tablet,Delayed Release (Dr/Ec) 81 mg PO DAILY RF: 0 potassium 99 mg Tablet 99 mg PO DAILY RF: 0 metformin 1,000 mg Tablet 1,000 mg PO BID RF: 0 lisinopril 10 mg Tablet 10 mg PO DAILY RF: 0 omeprazole 20 mg Capsule,Delayed Release(Dr/Ec) 20 mg PO DAILY RF: 0 fluticasone propion-salmeterol [Advair Diskus] 100-50 mcg/dose Blister With Device 1 puff INHALATION BID PRN (Reason: Shortness Of Breath Or Wheezing) RF: 0 albuterol sulfate [ProAir HFA] 90 mcg/actuation Hfa Aerosol Inhaler 2 puff INHALATION Q4 PRN (Reason: Shortness Of Breath Or Wheezing) RF: 0 naproxen 500 mg Tablet 500 mg PO BID RF: 0 escitalopram oxalate 10 mg Tablet 10 mg PO DAILY RF: 0 Changed Basaglar KwikPen U-100 Insulin 100 unit/mL (3 mL) Insulin Pen 32 unit SUBCUT HS Qty: 0 RF: 0 Stand-Alone Forms: Medications to Prevent Stroke, [facility], Work/School Release (Inpt) Discharge Orders: Discharge Order (Routine); Ordered 12/07/18 Ordered By: Jerzy Garcia Admission Data Admit Date/Time: 12/05/18 15:38 Attending Provider: Jerzy Garcia Admit Provider: Manoj Babin Primary Care Provider: Erica Portillo Other Providers: Seb Pickett ; Jerzy Garcia Service: Medical Other Interventions: Discharge Summary Assessment (RN) Last Done: 12/07/18 11:21 DC Date/Time DO NOT enter until pt leaves facility: 12/07/18 12:00
[2018-12-09 14:00] LABS: Anti Nuclear Antibody Screen NEGATIVE (NEGATIVE); Rheumatoid Factor < 14 IU/ML (<14)
== END 2018-12-07 12:00 | disposition home or self-care (01) | DRG 69 ==
LOC: ED 14:26 → SUATTDRO 15:38 → 2E 15:38 → 4E 12-06 14:05